=== PATIENT | female | born 1975 | race Caucasian/White ===

== ENCOUNTER 2017-06-07 05:36 | Inpatient (IN) | payer OTHER ==
[~2017-06-07] VITALS: Ht 157.5 cm; Wt 81.6 kg
[~2017-06-07 05:36] MED LIST: ASC500 PO; DSS100 PO; FES300 PO; IBUP-1152 PO; PER5 PO
[2017-06-07] MEDS ORDERED: Oxytocin 10 Unit/mL Inj IM PRN ×2 (06:00→08:45)
[2017-06-07] MEDS ORDERED: Lactated Ringer's 1,000 ML IV SCH (06:00)
[2017-06-07] MEDS ORDERED: Sodium Citrate-Citric Acid 15 mL Solution PO SCH (06:00)
[2017-06-07] MEDS ORDERED: Carboprost 250 mCg/mL Inj IM PRN ×2 (06:00→08:45)
[2017-06-07] MEDS ORDERED: Hemorrhage Kit, Post Partum XX ONE ×2 (06:00→08:45)
[2017-06-07] MEDS ORDERED: CeFAZolin Inj 2 GM in IV Premix 1 EACH IV ONE (06:00)
[2017-06-07] MEDS ORDERED: Methylergonovine 0.2 mg/mL Inj IM PRN ×2 (06:00→08:45)
[2017-06-07 06:33] LABS: Mean Corpuscular Hemoglobin 32.6 pg (27.0-35.0); Mean Corpuscular Volume 95.1 fL (81-100)
--- NOTE | 2017-06-07 06:48 | PCM.HPSURG ---
Subjective Date of Service: Jun 07, 2017 Referring Provider: Admitting Physician: Regla Cruz MD Primary Care Physician: Sherine Holder MD Attending Physician: Regla Cruz MD Chief Complaint Planned cesarian section at 38 weeks History of Present Illness Patient is a 42 y.o. F at 38 weeks ANTOINETTE 06/14/17 who presents for planned due to a history of two previoius operative vaginal deliveries, AMA and variable presentation. Patient noted no rupture of membranes, contractions intermittent, no regular, labs GBS negative A+ HCT 38.5 Hgb 13 Varacella immune Rubella immune RPR non reactive HIV negative Hep B negative A1C 5.4 TSH 2.2 Hep C negative Allergy Allergies: Coded Allergies: No Known Allergies (Unverified , 09/04/13) Medications Home medications vitamin Past Surgical History Operations: none Social History Hx Alcohol Use: No Hx Substance Use: Yes ([facility] ) Hx Tobacco Use: No PMH HEENT History History of ENT Problems?: No HEENT History: Denies:: Abnormal Airway Difficult Intubation Cardiovascular History Cardiovascular History: Denies:: Abdominal Aortic Aneurism Atrial Fibrillation Cardiac Surgery Congestive Heart Failure Hypertension Irregular Heartbeat Respiratory History of Respiratory Problem: No Respiratory History: Denies:: Tuberculosis Female/Male History Reproductive History Female: Positive for: Currently ? Other History Hx Any Other Health Problems?: No Diabetes: No Social History Hx Alcohol Use: NoHx Substance Use: NoHx Tobacco Use: No Smoking Status: Current Every Day Smoker Living Arrangement: with Family Family History Family History: negative for cancer, DM Review of Systems Constitutional: Denies: Chills, Fever ENT: Denies: Dysphagia Cardiovascular: Denies: Chest Pain, Orthopnea, Palpitations Respiratory: Denies: Cough, Hemoptysis, Pleuritic Chest Pain Gastrointestinal: Denies: Abdominal Pain, Nausea, Vomiting Genitourinary: Denies: Dysuria, Hematuria Musculoskeletal: Denies: Redness, Swelling Skin: Denies: Bruising, Jaundice Neurological: Denies: Dizziness, Incoordination, Numbness, Weakness Psychologic: Denies: Disorientation, Excitation, Giddiness, Nervousness Endocrine: Denies: Change in Appitite, Intolerent to Heat/Cold H&P Surgical Exam Exam General: Alert, Oriented X3, Cooperative Neck: Supple, Rigid, Full Range of Motion Lungs: Clear to Auscultation, Normal Air Movement Heart: Regular Rate/Rhythm, Normal S1, Normal S2, No Murmurs/Rubs/Gallops Abdomen: Non-tender, Rebound Tenderness, Other (gravid size consistent with gestational age) Extremities: Distal Pulses Palpable, Warm, Thigh&Calf Soft/Nontender Neuro: Cranial Nerves 2-12 nl Assessment & Plan Assessment Patient is a 42 y.o. F at 38 weeks 2days, ANTOINETTE 06/14/17 admitted for planned primary delivery and tubal ligation. complicated by marijuana use during , AMA and history of two operative vaginal deliveries. Pain Evaluation: Adequate Pain Control VTE Mechanical Devices: Intermittant Pneumatic CD Plan: Admit to [facility] for planned cesarian section NPO at midnight 06/06/17 IVF LR 125 mls/hr Hydrocodone 5-325 for pain Anesthesia consulted CBC ordered Ancef given pe-operatively Pt requesting tubal ligation post cesarian Post hemorrhage kit in place Expected stay 48 hours after cesarian section Resuscitation Status: CPR: Attempt Resuscitation Attending Statement: The patient was seen and examined together with Dr. Prasanna Maynard DO on 2016 and I agree with the history, exam and plan as outlined in the note above. PRASANNA MAYNARD DO Jun 07, 2017 06:48 Regla Cruz MD Jun 11, 2017 08:04
--- NOTE | 2017-06-07 07:29 | PCM.HPANE ---
Patient Data Date of Service: Jun 07, 2017 Surgeon Admitting Provider:Regla Cruz MD Attending Provider:Regla Cruz MD Primary Care Physician:Sherine Holder MD Other Provider:Brittani Rich Anesthesia Reason for Visit Primary c/s Primary c/s Ht/WT & BMI Body Mass Index Allergies Coded Allergies: No Known Allergies (Unverified , 09/04/13) Past Anesthesia History Anesthesia History: Denies:: Abnormal Airway, Difficult Intubation Diabetes History Hx Diabetes?: No Medications Active Scripts Docusate Sod-Expunged Drug, Do Not Renew! 100 Mg [id number] Mg PO DAILY PRN #30 Prov:ReganEligio Melissa DO 09/13/13 Ascorbic Acid-Expunged Drug, Do Not Renew! (Vitamin C-Expunged Drug, Do Not Renew!)500 Mg [id number] Mg PO DAILYWM 30 Days Prov:Eligio Spears DO 09/13/13 Ferrous Sulfate-Expunged Drug, Do Not Renew! (Feosol-Expunged Drug, Do Not Renew !)325 Mg [id number] Mg PO BID #60 Prov:Eligio Spears DO 09/13/13 IBUPROFEN-Expunged Drug, Do Not Renew! 800 Mg [id number] Mg PO Q6 PRN #50 Prov:Eligio Spears DO 09/13/13 oxyCODone/APAP-Expunged, Do Not Renew! (oxyCODone/Apap 5/325mg-Expunged, Do Not Renew) Tablet Po Q3 Prn #40 Prov:Eligio Spears DO 09/13/13 History History of ENT Problems?: No HEENT History: Denies:: Abnormal Airway Difficult Intubation Denture Type: None Teeth Condition: Within Normal Limits Hx of Heart Problems?: No Cardiovascular History: Denies:: Abdominal Aortic Aneurism Atrial Fibrillation Cardiac Surgery Congestive Heart Failure Hypertension Irregular Heartbeat Hx of Respiratory Problem?: No Respiratory History: Denies:: Tuberculosis Hx Neurologic Problems?: No Hx of GI Problems?: No Gastrointestinal History: Denies:: Heartburn Hx of Problems?: No Female Hx: Positive for:: Currently Hx Musculoskeletal Problems?: Yes Musculoskeletal History: Positive for:: Rheumatoid Arthritis Hx of Psycho/Social Problems?: No Hx Surgeries?: No Hx Any Other Health Problems?: No Hx Diabetes: No Hx Alcohol Use: NoHx Substance Use: Yes (fuadtaty ) Smoking Status: Former Smoker Have You Smoked inLast 12 mo: No Stop/Bang REBECCA Risk Assessment: Low Risk, <3 Yes Risk Assessment Category Category 1A: Patient has history of documented sleep apnea, and HAS NOT received any narcotic, sedative or anesthesia administration during this stay. Category 1B: Patient has history of documented sleep apnea, and HAS received any narcotic , sedative or anesthesia administration during this stay Category 2: Patient has SUSPECTED Obstructive Sleep Apnea, and HAS received any narcotic , sedative or anesthesia administration during this stay. Category 3: Patient has SUSPECTED Obstructive Sleep Apnea and HAS NOT received narcotic, sedative or anesthesia administration during this stay. Category 4: Outpatient in Procedural Areas with known sleep apnea or who screen positive for High Risk via the STOP/BANG questionnaire. Exam Exam General Appearance: Alert, Oriented X3, Cooperative, No Acute Distress HEENT/AIRWAY: MP 1 Lungs: Clear to Auscultation, Normal Air Movement Heart: Regular Rate/Rhythm, Normal S1, Normal S2, No Murmurs/Rubs/Gallops Meds/Labs/Diagnostics Admission Meds Current Medications Lactated Ringer's (Lr) 1,000 ml @ 125 mls/hr Q8H IV Last administered on t 07:06; Start 06/07/17 at 06:00; Stop 06/07/17 at 13:59 Labs Test 06/07/17 06:10 06/07/17 07:16 White Blood Count 8.8th/mm3 (3.8-10.1) Red Blood Count 4.08mil/mm3 (3.90-5.20) Hemoglobin 13.3g/dL (12.0-15.6) Hematocrit 38.8% (35.0-46.0) Mean Corpuscular Volume 95.1fL (81-100) Mean Corpuscular Hemoglobin 32.6pg (27.0-35.0) Mean Corpuscular Hemoglobin Concent 34.3% (32.0-37.0) Red Cell Distribution Width 13.5% (12.3-15.4) Platelet Count 220bil/L (150-400) Plan Impression Patient chart reviewed, patient interviewed and anesthestic plan with risks, benefits, and alternatives discussed, and informed consent obtained. NPO per Anesth. Guidelines: Yes ASA Physical Status: ASA2 Mod Systemic Disease Anesthetic Plan: SAB Bene/Risks/Altern/Consents: Yes HP Complete Prior to Induction: Yes Guzman Nelson MD Jun 07, 2017 07:29
[2017-06-07] MEDS ORDERED: Lactated Ringer's 1,000 ML IV PRN (08:03)
[2017-06-07] MEDS ORDERED: Morphine PF 1 mg/mL 10 mL Inj INTRATHEC ONE (08:05)
[2017-06-07] MEDS ORDERED: Ondansetron 2 mg/mL 2 mL Inj IVPUSH PRN (08:05)
[2017-06-07] MEDS ORDERED: Dexamethasone 4 mg/mL Inj IVPUSH PRN (08:05)
[2017-06-07] MEDS ORDERED: Atropine 0.4 mg/mL Inj IV PRN (08:05)
[2017-06-07] MEDS ORDERED: EPHEDrine Sulfate 50 mg/mL Inj IVPUSH PRN (08:05)
[2017-06-07] MEDS ORDERED: MetoCLOpramide 5 mg/mL 2 mL Inj IVPUSH PRN (08:05)
[2017-06-07] MEDS ORDERED: fentaNYL-PF 50 mCg/mL 2 mL Inj IVPUSH PRN (08:05)
[2017-06-07] MEDS ORDERED: Sodium Chloride LOK Flush 10 mL Syringe IVFLUSH PRN (08:45)
[2017-06-07] MEDS ORDERED: hydrOXYzine Pamoate 25 mg Capsule PO PRN (08:45)
[2017-06-07] MEDS: Lactated Ringer's 1,000 ML IV SCH ×2 (08:45→12:14)
[2017-06-07] MEDS ORDERED: LANOlin HPA 7 Gm Ointment TOPICAL PRN (08:45)
[2017-06-07] MEDS ORDERED: HYDROcodone-APAP 5-325 mg Tablet PO PRN (08:45)
[2017-06-07] MEDS ORDERED: Oxytocin 30 Units/500 mL LR 30 UNITS in IV Premix 1 EACH IV PRN (08:45)
[2017-06-07] MEDS: HYDROmorphone 1 mg/mL Inj IVPUSH PRN ×2 (09:18→09:25)
--- NOTE | 2017-06-07 09:21 | OP ---
[address] [address] OPERATIVE REPORT PATIENT: LARRY VALDES : 1975 MR#: [id number] ADMIT: 06/07/2017 JOB ID: [id number] DATE OF SURGERY: 06/07/2017 PREOPERATIVE DIAGNOSIS(ES): 1. Variable presentation. 2. Thirty-nine weeks gestation. 3. History of two prior operative vaginal deliveries. Desired delivery. 4. Sterilization. POSTOPERATIVE DIAGNOSIS(ES): 1. Variable presentation. 2. Thirty-nine weeks gestation. 3. History of two prior operative vaginal deliveries. Desired delivery. 4. Sterilization. PROCEDURE PERFORMED: 1. Primary low-transverse delivery. 2. Bilateral tubal ligation using modified [place] method. SURGEON: Regla Cruz M.D. INTERIOR DESIGN INSTRUCTOR: Delonte Garcia M.D. Dr. Garcia was necessary for this procedure to help with exposure and delivery of . ANESTHESIA: Spinal. ESTIMATED BLOOD LOSS: 600 mL. COMPLICATIONS: None. PATHOLOGY SENT: Portion of right and left fallopian tubes. FINDINGS AT THE TIME OF SURGERY: Female in a cephalic presentation with an infant weight of 3786 g, Apgars of 9 and 9. The uterus, fallopian tubes, and ovaries were normal in appearance bilaterally. DESCRIPTION OF PROCEDURE: The patient was taken to the operating room, where her spinal anesthesia was found be adequate. She was placed in a lithotomy position in a leftward tilt and prepared and draped in a normal sterile fashion. A Pfannenstiel incision was made with a scalpel. This was carried down to the underlying fascia with the Bovie cautery. The fascia was nicked in the midline and this incision was extended laterally with the Dawson scissors. The fascia was then tented up and the underlying rectus muscle was dissected off with blunt and sharp dissection both superiorly and inferiorly. The rectus muscles were in the midline and peritoneum was tented up and entered sharply with the Metzenbaum scissors. This incision was again extended superiorly and inferiorly with the Metzenbaum scissors. The lower uterine segment was identified. A bladder flap was created, and the uterus incised in a low transverse fashion with the scalpel. The infant was delivered in a cephalic presentation without difficulty. The cord was clamped after 1 minute and the handed off to the awaiting nurses. Cord blood was sent. The placenta was then removed manually. The uterus was exteriorized, cleared of all clots and debris. The uterus was then exteriorized and the uterine incision was repaired in two layers with 0-Vicryl suture. A third suture of 0-Vicryl was used for hemostasis. A bilateral tubal ligation was then performed using a modified [place] method. The right fallopian tube was identified, followed out to the fimbriated end and grasped in the mid isthmic portion. A defect was made in the mesosalpinx and two free ties of 0 chromic suture were used to isolate and ligate a segment of the tube. The intervening segment was excised. In a similar fashion, the left fallopian tube was identified, followed out to fimbriated end and grasped in the mid isthmic portion with a Mika clamp. A defect was made in the mesosalpinx and two free ties of 0 chromic suture were used to isolate and ligate a segment of tube and the intervening segment was excised. The tubal lumens were cauterized. Good hemostasis was assured. The gutters were then irrigated with copious amounts of normal saline. The uterus was returned to the patient's peritoneal cavity. The uterine incision was inspected a second time. Another suture of 0-Vicryl was used for hemostasis. Irrigation was performed and the incision was noted to be hemostatic. The rectus muscles were then reapproximated with several interrupted sutures of 0 chromic suture. The fascia was reapproximated with 0-Vicryl suture in a running fashion. Two sutures were used. They were anchored at the apices and tied separately in the midline. The subcutaneous layer was closed with 0 plain gut. The skin was closed with 4-0 Monocryl in a subcuticular fashion. Dermabond and Steri-Strips applied. All lap, instrument, and needle counts correct x2 at the end of procedure. The patient was taken to her room in good condition.
[2017-06-07] MEDS ORDERED: Acetaminophen IV 1,000 MG in IV Premix 1 EACH IV PRN (09:30)
[2017-06-07] MEDS ORDERED: Measles-Mumps-Rubella Vaccine 0.5 mL Inj SUBQ ONE (13:35)
--- NOTE | 2017-06-07 14:28 | PCM.ANEP1 ---
Post Anesthesia PACU Phase 1 Assessment Date of Service: Jun 07, 2017 Anesthetic Administered: SAB Level of Alertness: Awake, talking TRUJILLO's with Equal Strength: Yes Pain: Yes Pain Scale Score: 7 Nausea or Vomiting: No CV Function & Hydration Stable: Yes Airway Device: Oxygen Delivery: Room Air Lungs: Clear to Auscultation, Normal Air Movement Dermatome Level: Full Sensation PACU Phase 2 Assessment Complications: No Follow up Care: N/A Patient Instructions Provided: N/A Guzman Nelson MD Jun 07, 2017 14:28
[2017-06-07] MEDS ORDERED: Phenylephrine 10,000 mCg/mL Inj ONE (16:46)
[2017-06-07] MEDS ORDERED: Oxytocin 10 Unit/mL Inj ONE (16:46)
[2017-06-07] MEDS ORDERED: fentaNYL-PF 50 mCg/mL 2 mL Inj ONE (16:46)
[2017-06-07] MEDS ORDERED: Morphine PF 1 mg/mL 10 mL Inj ONE (16:46)
[2017-06-07] MEDS ORDERED: Ondansetron 2 mg/mL 2 mL Inj ONE (16:46)
[2017-06-07] MEDS: oxyCODONE-Acetamin 5-325 mg Tablet PO PRN ×2 (17:59→21:53)
[2017-06-08] MEDS: oxyCODONE-Acetamin 5-325 mg Tablet PO PRN ×5 (01:56→21:12)
[2017-06-08 07:05] LABS: Mean Corpuscular Hemoglobin 32.7 pg (27.0-35.0); Mean Corpuscular Volume 97.5 fL (81-100)
[2017-06-08] MEDS: Ascorbic Acid 500 mg Tablet PO SCH (08:57)
--- NOTE | 2017-06-08 11:43 | PROG NOTE ---
[address] [address] PROGRESS NOTE PATIENT: LARRY VALDES : 1975 MR#: [id number] ADMIT: 06/07/2017 JOB ID: [id number] DATE: 06/08/2017 SUBJECTIVE: This is a 42-year-old female. She is postop day 1 status post primary section for a transverse lie. The procedure was not complicated. The patient is doing well after procedure. Her pain is well controlled. She was able to void and she is able to keep her food down. No nausea or vomiting. PHYSICAL EXAMINATION: She is afebrile. Cardiac: RRR. No murmur. Pulmonary: Bilaterally clear. Abdomen: Soft, nontender. Extremities: Nontender. Incision clean and dry. ASSESSMENT AND PLAN: A 42-year-old female postop day one after the primary section. Doing well. Will continue for pain management. Encouraged ambulating. Plan to discharge her home tomorrow.
[2017-06-09] MEDS: oxyCODONE-Acetamin 5-325 mg Tablet PO PRN ×4 (01:43→14:34)
--- NOTE | 2017-06-09 08:09 | PCM.DC.OB ---
Obstetrical Discharge Summary Date of Service Jun 09, 2017 Date of hospital admission Jun 07, 2017 at 05:36 Date of Discharge: Jun 09, 2017 Providers Admitting Physician: Regla Cruz MD Primary Care Physician: Sherine Holder MD Attending Physician: Regla rCuz MD Diagnosis at Time of Discharge S/p Cesarian section delivery Problems: Invasive procedures Cesarian section Date of Procedure: Jun 07, 2017 Pathology placenta, chord Brief History and Physical: Patient is a 42 y.o. F at 38 weeks ANTOINETTE 06/14/17 who presents for planned cesarian section due to AMA, low lying placenta, transverse lie. 06/07/17 Patient noted no rupture of membranes, contractions intermittent, no regular contractions. Patient delivered healthy infant via cesarian section 06/07/17. Post op day 1 patient did well no major complaints, light lochia, incision healing well, denied fever, chills, nausea, vomiting. Today doing well passing gas, ambulating on own, voiding without difficulty, eating well, light lochia, pain under control Denies fever, chills, nausea, vomiting. labs GBS negative A+ HCT 38.5 Hgb 13 Varacella immune Rubella immune RPR non reactive HIV negative Hep B negative A1C 5.4 TSH 2.2 Hep C negative Exam General: Alert, Oriented X3, Cooperative Neck: Supple, Rigid, Full Range of Motion Lungs: Clear to Auscultation, Normal Air Movement Heart: Regular Rate/Rhythm, Normal S1, Normal S2, No Murmurs/Rubs/Gallops Abdomen: Non-tender, Rebound Tenderness, soft, fundus firm Extremities: Distal Pulses Palpable, Warm, Thigh&Calf Soft/Nontender Neuro: Cranial Nerves 2-12 nl Hospital Course: Patient is a 42 y.o. F at 38 weeks ANTOINETTE 06/14/17 who presents for planned cesarian section due to AMA, low lying placenta, transverse lie. 06/07/17 Patient noted no rupture of membranes, contractions intermittent, no regular contractions. Patient delivered healthy infant via cesarian section 06/07/17. Post op day 1 patient did well no major complaints, light lochia, incision healing well, denied fever, chills, nausea, vomiting. Today doing well passing gas, ambulating on own, voiding without difficulty, eating well, light lochia, pain under control Denies fever, chills, nausea, vomiting. ([Lanolin]) 2 APPLIC/GM OINT 1 APPLIC TOPICAL DIRECTED PRN PRN for breast care Prescribed by: WARD MAYNARD DO ([Ascorbic Acid]) 500 MG TABLET 500 MG PO DAILYWM Prescribed by: WARD MAYNARD DO Ascorbic Acid-Expunged Drug, Do Not Renew! (Vitamin C-Expunged Drug, Do Not Renew!) 500 Mg Tablet 500 MG PO DAILYWM Prescribed by: BLAISE SMALL DO Docusate Sod-Expunged Drug, Do Not Renew! (Docusate Sod-Expunged Drug, Do Not Renew!) 100 Mg Capsule 100 MG PO DAILY PRN PRN Prescribed by: BLAISE SMALL DO Docusate Sodium (Colace) 100 Mg Capsule 100 MG PO BID Prescribed by: WARD MAYNARD DO Ferrous Sulfate (Feosol) 325 Mg Tablet 325 MG PO BIDWM Prescribed by: WARD MAYNARD DO Ferrous Sulfate-Expunged Drug, Do Not Renew! (Feosol-Expunged Drug, Do Not Renew !) 325 Mg Tablet 325 MG PO BID Prescribed by: BLAISE SMALL, IBUPROFEN-Expunged Drug, Do Not Renew! (IBUPROFEN-Expunged Drug, Do Not Renew!) 800 Mg Tablet 800 MG PO Q6 PRN PRN Prescribed by: BLAISE SMALL DO Ibuprofen (Ibuprofen) 600 Mg Tablet 600 MG PO Q6H PRN PRN For Pain Prescribed by: WARD MAYNARD DO oxyCODONE-Acetaminophen 5-325 mg (oxyCODONE-Acetaminophen 5-325 mg) 1 Each Tablet 1-2 TAB PO Q4H PRN PRN For Pain Prescribed by: WARD MAYNARD DO oxyCODone/APAP-Expunged, Do Not Renew! (oxyCODone/Apap 5/325mg-Expunged, Do Not Renew) Tablet 0 TAB PO Q3 PRN PRN Prescribed by: BLAISE SMALL DO Discharge Medications: see discharge summary Disposition DC home Follow-up plan 2 weeks and 6 week follow up in clinic Discharge Diet: No restrictions Discharge Activity-General: Pelvic Rest for 6 weeks, Try not to overdue, Ice incision 3-5 time/day for 20min, No lifting >15 pounds for 2 weeks Patient instructions Colase 100 mg twice daily Iron supplement once daily Ibuprofen 800 mg by mouth for pain Percocet 5-325 mg 1-2 tab every 6-8 hours by mouth for breakthrough pain Follow up in 2 weeks and 6 weeks at clinic If you experience depression, thoughts of suicide, self harm, harming other, call our office and seek emergency medical care WARD MAYNARD DO Jun 09, 2017 08:09
--- NOTE | 2017-06-09 08:10 | PCM.DIOB ---
Obstetrical Disch Instruction Date of Service: Jun 09, 2017 Dates of Hospitalization Date of Hospital Admission Jun 07, 2017 at 05:36 Providers Admitting Physician: Regla Cruz MD Primary Care Physician: Sherine Holder MD Attending Physician: Regla Cruz MD Discharge Diagnosis Discharge Diagnosis S/p cesarian section delivery Problems: Diet Discharge Diet: No restrictions Activity Discharge Activity-General: Pelvic Rest for 6 weeks, Try not to overdue, Ice incision 3-5 time/day for 20min, No lifting >10 pounds for 4-6 weeks Dressing and Incisional Care Dressing Care: Keep dressing clean, dry & intact, Allow Steri Stripes to fall off, Remove outer dressing after 24 hrs Hygiene: May shower, DO NOT soak incision under water, NO bathtub, hot tub or whirlpool, Perineal care, Sitz bath, Witch Alaina pads Additional Instructions Discharge Instructions Colase 100 mg twice daily Iron supplement once daily Ibuprofen 800 mg by mouth for pain Percocet 5-325 mg 1-2 tab every 6-8 hours by mouth for breakthrough pain Follow up in 2 weeks and 6 weeks at clinic If you experience depression, thoughts of suicide, self harm, harming other, call our office and seek emergency medical care Follow Up Plan Follow Up Plan Follow up in 2 weeks and 6 weeks at clinic If you experience depression, thoughts of suicide, self harm, harming other, call our office and seek emergency medical care Call your provider for: Fever or Chills, Shortness of breath, Heavy vaginal bleeding, Heavy bleeding, Epigastric pain, Excessive constipation, Vaginal discomfort, Red painful breasts WARD MAYNARD DO Jun 09, 2017 08:10
[2017-06-09] MEDS ORDERED: DOCU-41 PO (08:12)
[2017-06-09] MEDS ORDERED: FERR-74 PO (08:12)
[2017-06-09] MEDS ORDERED: IBUP-1827 PO (08:12)
[2017-06-09] MEDS ORDERED: Lanolin TOPICAL (08:12)
[2017-06-09] MEDS ORDERED: HYDR-4003 PO (08:12)
[2017-06-09] MEDS ORDERED: Ascorbic Acid PO (08:12)
[2017-06-09] MEDS: Lactated Ringer's 1,000 ML IV SCH (08:45)
[2017-06-09] MEDS: Ascorbic Acid 500 mg Tablet PO SCH (09:18)
[2017-06-09 11:29] VITALS: BP 110/73; PULSE 65; RESP 16
[2017-06-09] MEDS ORDERED: Measles-Mumps-Rubella Vaccine 0.5 mL Inj SUBQ ONE (15:19)
[2017-06-09] MEDS ORDERED: OXYC1TAB24 PO (16:18)
--- NOTE | 2017-06-12 14:52 | PATH ---
SURGICAL PATHOLOGY Attending Physician:Regla Cruz, CASE STATUS: Signed Out PATIENT NAME: LARRY VALDES PID: [id number] : 1975 DATE COLLECTED:06/07/2017 21:59 SPECIMEN: 1: Fallopian Tube, Sterilization 2: Fallopian Tube, Sterilization CLINICAL HISTORY: 1). PORTION OF RIGHT FALLOPIAN TUBE 2). PORTION OF LEFT FALLOPIAN TUBE FINAL DIAGNOSIS: 1. Right Fallopian Tube, Segment, Sterilization: One complete circumferential segment of fallopian tube. No evidence of neoplasm. 2. Left Fallopian Tube Segment, Sterilization: One complete circumferential segment of fallopian tube. No evidence of neoplasm. ICD10: Z30.2 GROSS DESCRIPTION: The specimen is received in 2 containers fresh and labeled with the patient's name. 1). The specimen is labeled "R. fallopian" and consists of a non-fimbriated cylindrical shaped portion of tissue which measures 1.8 x 0.7 x 0.5 CM. The specimen is inked blue, sectioned into 4 pieces and entirely submitted in cassette 1A. 2). The specimen is labeled "L. fallopian" and consists of a non-fimbriated cylindrical shaped portion of tissue which measures 1.6 x 0.6 0.5 CM. The specimen is inked blue, sectioned into 4 pieces and entirely submitted in cassette 2A. 06/07/2017SD ICD-9 CODES: CPT CODES: 1: 93522 2: 58506 Electronically Signed Out Lillie Estrada MD [facility]ology [facility], [place] [address] Technical component performed at [facility], [address] [place] [address] Ave[address], [place], [address]
== END 2017-06-09 16:47 | disposition home or self-care (01) | DRG 766 ==
LOC: FBC 05:36 → EDSTATUS 07:15
PROVIDERS: ADMIT Obstetrics & Gynecology; ATTEND Obstetrics & Gynecology
PROC: 0UL70ZZ Occlusion of Bilateral Fallopian Tubes, Open Approach (ICD-10-PCS; 2017-06-07)
PROC: 10907ZC Drainage of Amniotic Fluid, Therapeutic from Products of Conception, Via Natural or Artificial Opening (ICD-10-PCS; 2017-06-07)
PROC: 10D00Z1 Extraction of Products of Conception, Low, Open Approach (ICD-10-PCS; principal; 2017-06-07 07:15)
DX: O32.2XX0 Maternal care for transverse and oblique lie, not applicable or unspecified (principal); O99.334 Smoking (tobacco) complicating childbirth; O76 Abnormality in fetal heart rate and rhythm complicating labor and delivery; Z3A.39 39 weeks gestation of pregnancy; Z37.0 Single live birth; Z30.2 Encounter for sterilization